=== PATIENT | female | born 1960 | race Caucasian/White ===

== ENCOUNTER 2021-06-21 12:14 | Outpatient (CLI) | payer BC, SELFPAY ==
--- NOTE | 2021-06-21 14:00 | CT_ITS ---
WS: [id number] CT ABDOMEN PELVIS TECHNIQUE: Noncontrast CT of the abdomen and pelvis with coronal and sagittal reformatted images. CLINICAL INFORMATION: K57.92 - Diverticulitis of intestine, part unspecified, w... COMPARISON: None. DLP: 1108.[address] scans at [facility] use at least one of these dose optimization techniques: automat ed exposure control; mA and/or kV adjustment per patient size (includes targeted exams where dose is matched to clinical indication); or iterative reconstruction. FINDINGS: Prior hysterectomy. Prior cholecystectomy. Sigmoid diverticulosis. No acute diverticulitis. No evidence of small or large bowel obstruction. Lung bases are well aerated. Noncontrast liver is normal. Cholecystectomy clips. Normal GE junction. Noncontrast spleen is normal. Adrenal glands are normal. No hydronephrosis in either kidney. Noncontr ast pancreas is normal. No periaortic or pelvic lymphadenopathy. No inguinal lymphadenopathy. CT/CT abdomen pelvis wo con [id number] IMPRESSION: 1. Sigmoid diverticulosis. No evidence of acute diverticulitis. 2. No evidence of small or large bowel obstruction. 3. Prior hysterectomy and cholecystectomy. 4. No hydronephrosis in either kidney.
== END 2021-06-21 12:15 | disposition home or self-care (01) ==
PROVIDERS: PCP Registered Nurse; Visit Provider Registered Nurse
DX: K57.92 Diverticulitis of intestine, part unspecified, without perforation or abscess without bleeding (principal); K57.30 Diverticulosis of large intestine without perforation or abscess without bleeding; Z90.710 Acquired absence of both cervix and uterus; Z90.49 Acquired absence of other specified parts of digestive tract; R19.8 Other specified symptoms and signs involving the digestive system and abdomen
CPT/HCPCS: 74176; 81000

== ENCOUNTER → 2021-08-03 09:04 | Outpatient (BNVA) | payer BC, SELFPAY | PROVIDERS: PCP Registered Nurse; Visit Provider Surgery | DX: Z20.822 Contact with and (suspected) exposure to COVID-19 (principal) | CPT/HCPCS: 87635 ==

== ENCOUNTER 2021-08-10 10:09 | Day surgery (SDC) | payer BC, SELFPAY ==
[2021-08-07 11:09] VITALS: BMI 29.2
[2021-08-10 11:08] VITALS: BP 126/79; PULSE 67; RESP 16; TEMP 36.2; O2SAT 93
--- NOTE | 2021-08-10 11:10 | ANES.PREANE2 ---
Pre-Anesthetic Assessment Pre-Anesthetic Assessment: Height/Weight: Height 1.63 m Weight 77.111 kg Preop Diagnosis: screening colonoscopy Proposed Procedure: Operation Date: 08/10/21 11:45 Proposed Procedures p Colonoscopy 53628 K57.30(Not Applicable) - Faizan Banerjee MD Was Beta Marilyn taken within 24 hours: N/A Was Clonidine taken within 24 hours: N/A Social: Social History: No alcohol and No tobacco Exam: Pre-Anes Outpt Exam: alert, oriented x 3, clear to auscultation bilaterally and regular rate & rhythm Airway: Submandibular: WNL Cervical ROM: WNL Dentition: Full CV/HEM: CV/HEM: HTN Anesthetic Plan: ASA status: 2 Anesthesia: MAC Risk of > 500 ml blood loss (7ml/kg in children): No PFSH Anesthesia PFSH: Medical History (Updated 07/04/21 @ 16:58 by Faizan Banerjee MD) Diverticulitis Hypertension Surgical History (Updated 07/04/21 @ 16:01 by Faizan Banerjee MD) History of cholecystectomy 2013 History of colonoscopy History of hysterectomy 2004 Family History Father Diabetes Hypertension Heart disease Mother Stroke Hypertension Grandfather Cancer Social History Smoking and tobacco status: former smoker Alcohol intake: never Adopted: No Caregiver/support person: No Lives independently: No Household members: spouse Marital status: service: No Current occupational status: retired History of recent travel: Yes Sexually active: Yes Current gender identity: Female Data Anesthesia Cardiac Studies: No Data to Display
[2021-08-10] MEDS: sodium chloride 0.9% 1,000 ML 30 ML IV (11:24)
--- NOTE | 2021-08-10 11:27 | W.PM.OPSFHP ---
Same Day Surgery H&P Indication for Procedure/HPI DATE OF PROCEDURE: August 10, 2021 CHIEF COMPLAINT/INDICATIONFOR SURGICAL PROCEDURE: diverticulosis PREOP DIAGNOSIS: screening colonoscopy PLANNED PROCEDRUE: Operation Date: 08/10/21 11:45 Proposed Procedures p Colonoscopy 18437 K57.30(Not Applicable) - Faizan Banerjee MD Medications/Allergies* Allergies/Adverse Reactions Allergy/AdvReac Type Severity Reaction Status Date / Time No Known Allergies Allergy Verified 08/10/21 11:17 Current Medications: Generic Name Dose Route Start Last Admin Trade Name Freq PRN Reason Stop Dose Admin Sodium Chloride 1,000 mls @ 30 mls/hr 08/10/21 10:30 08/10/21 11:24 Sodium Chloride 0.9% IV 08/11/21 10:29 30 mls/hr .Q24H ARIANNA Administration Pertinent History/Comorbid Conditions* Medical History (Updated 07/04/21 @ 16:58 by Faizan Banerjee MD) Diverticulitis Hypertension Surgical History (Updated 07/04/21 @ 16:01 by Faizan Banerjee MD) History of cholecystectomy 2013 History of colonoscopy History of hysterectomy 2004 Family History (Updated 05/16/21 @ 09:45 by Catarina Lowery LPN) Diabetes Father Heart disease Father Cancer Grandfather Hypertension Father Mother Stroke Mother Social History Smoking and tobacco status: former smoker Alcohol intake: never Adopted: No Caregiver/support person: No Lives independently: No Household members: spouse Marital status: service: No Current occupational status: retired History of recent travel: Yes Sexually active: Yes Current gender identity: Female Pertinent Exam Findings alert, oriented x 3 and regular rate & rhythm Recommendations Surgery/Procedure today Coding Level of Care Code 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
[2021-08-10 13:09] VITALS: BP 101/63; PULSE 78; RESP 16; TEMP 36.4; O2SAT 95
[2021-08-10 13:26] VITALS: BP 120/78; PULSE 81; RESP 18; O2SAT 99
--- NOTE | 2021-08-10 14:25 | ANE.PACU2 ---
Inpatient post-anesthesia follow up: Airway intact: Yes Vital signs: Temperature 97.5 F Pulse Rate 81 Respiratory Rate 18 Blood Pressure 120/78 Pulse Oximetry 99 Oxygen Delivery Me thod Room Air Oxygen Flow Rate Fraction of Inspir ed Oxygen Hydration adequate: Yes Nausea and vomiting: No Pain level: 1 Mental status: Baseline
== END 2021-08-10 11:30 | disposition home or self-care (01) ==
PROVIDERS: PCP Registered Nurse; Visit Provider Surgery
PROC: 0DJD8ZZ Inspection of Lower Intestinal Tract, Via Natural or Artificial Opening Endoscopic (ICD-10-PCS; CPT 45378; principal; 2021-08-10 11:45)
DX: Z12.11 Encounter for screening for malignant neoplasm of colon (principal); K57.30 Diverticulosis of large intestine without perforation or abscess without bleeding; I10 Essential (primary) hypertension; Z82.49 Family history of ischemic heart disease and other diseases of the circulatory system; Z83.3 Family history of diabetes mellitus; Z87.891 Personal history of nicotine dependence
CPT/HCPCS: 45378; 96360; 96361; J2704; J7030

== ENCOUNTER 2022-01-01 11:29 | Outpatient (CLI) | payer BC, SELFPAY ==
--- NOTE | 2022-01-01 11:39 | MM_ITS ---
WS: [id number] BILATERAL SCREENING DIGITAL MAMMOGRAM WITH CAD HISTORY: SCREENING COMPARISON: 09/19/2018, 08/02/2017 Bilateral CC and MLO views submitted. Computer aided detection analyzed. Breast composition: There are scattered areas of fibroglandular density. No suspicious masses, microc alcifications or architectural distortion. Asymmetries are stable. Small nodule in the inferior RIGHT breast seen best on the MLO projection is stable. MM/[place] [id number] IMPRESSION: BI-RADS: 2-Benign FOLLOW UP: 1 Year Follow-up
== END 2022-01-01 11:30 | disposition home or self-care (01) ==
PROVIDERS: PCP Family Medicine; Visit Provider Family Medicine
DX: Z12.31 Encounter for screening mammogram for malignant neoplasm of breast (principal)
CPT/HCPCS: 77067

== ENCOUNTER → 2022-09-10 12:18 | Outpatient (BNVA) | payer BC, SELFPAY | PROVIDERS: PCP Family Medicine; Visit Provider Family Medicine | DX: Z00.00 Encounter for general adult medical examination without abnormal findings (principal); Z51.81 Encounter for therapeutic drug level monitoring; Z13.220 Encounter for screening for lipoid disorders; I10 Essential (primary) hypertension | CPT/HCPCS: 80053; 80061; 85025 ==

== ENCOUNTER 2023-01-31 08:38 | Outpatient (CLI) | payer BC, SELFPAY ==
--- NOTE | 2023-01-31 08:48 | MM_ITS ---
WS: [id number] BILATERAL SCREENING DIGITAL TOMOSYNTHESIS MAMMOGRAM WITH CAD HISTORY: SCREENING COMPARISON: 01/01/2022 and 09/19/2018 Bilateral CC and MLO views with tomosynthesis and synthetic mammography submitted. Computer aided det ection analyzed. Breast composition: There are scattered areas of fibroglandular density. No suspicious masses, microc alcifications or architectural distortion. MM/[place] [id number] IMPRESSION: BI-RADS: 1-Negative FOLLOW UP: 1 Year Follow-up
== END 2023-01-31 08:39 | disposition home or self-care (01) ==
PROVIDERS: PCP Family Medicine; Visit Provider Family Medicine
DX: Z12.31 Encounter for screening mammogram for malignant neoplasm of breast (principal)
CPT/HCPCS: 77063; 77067

== ENCOUNTER → 2023-09-05 09:22 | Outpatient (BNVA) | payer BC, SELFPAY | PROVIDERS: PCP Family Medicine; Visit Provider Family Medicine | DX: Z51.81 Encounter for therapeutic drug level monitoring (principal); Z13.220 Encounter for screening for lipoid disorders; E55.9 Vitamin D deficiency, unspecified; I10 Essential (primary) hypertension; Z00.00 Encounter for general adult medical examination without abnormal findings; R39.15 Urgency of urination | CPT/HCPCS: 80053; 80061; 82306; 85025 ==

== ENCOUNTER 2023-11-26 12:21 | Outpatient (CLI) | payer BC, SELFPAY ==
--- NOTE | 2023-11-26 12:29 | XRR_ITS ---
PROCEDURE INFORMATION: Exam: XR Chest Exam date and time: 11/26/2023 12:41 PM Age: 63 years old Clinical indication: Cough; Additional info: Persistent cough with mild ronchi lll TECHNIQUE: Imaging protocol: Radiologic exam of the chest. Views: 2 views. COMPARISON: CT abdomen pelvis wo con [id number] 06/21/2021 12:55 PM FINDINGS: Lungs: No consolidation. Pleural spaces: No sizable pleural effusion or pneumothorax. Heart/Mediastinum: No cardiomegaly. Bones/joints: Unremarkable. XR/XR chest 2V* [id number] IMPRESSION: No acute intrathoracic findings.
== END 2023-11-26 12:22 | disposition home or self-care (01) ==
LOC: RAD 12:23
PROVIDERS: PCP Family Medicine; Visit Provider Clinical Nurse Specialist Adult Health
DX: J20.9 Acute bronchitis, unspecified (principal)
CPT/HCPCS: 71046

== ENCOUNTER → 2023-12-04 09:54 | Outpatient (BNVA) | payer BC, SELFPAY | PROVIDERS: PCP Family Medicine; Visit Provider Family Medicine | DX: E55.9 Vitamin D deficiency, unspecified (principal); J32.9 Chronic sinusitis, unspecified | CPT/HCPCS: 82306 ==

== ENCOUNTER 2024-02-19 11:21 | Outpatient (CLI) | payer BC, SELFPAY ==
--- NOTE | 2024-02-19 11:26 | MM_ITS ---
WS: [id number] BILATERAL 3D TOMOSYNTHESIS DIGITAL SCREENING MAMMOGRAPHY WITH CAD CLINICAL INFORMATION: SCREENING HISTORY: Screening mammogram. No current complaints. COMPARISON: 2022 TECHNIQUE: Bilateral CC and MLO views. FINDINGS: Scattered fibroglandular densities bilaterally. No suspicious focal mass, asymmetry, calcifications, or architectural distortion. No evidence of malignancy. A few tiny incidental punctate calcifications . IMPRESSION: MM/[place] [id number] BI-RADS: 2-Benign FOLLOW UP: 1 Year Follow-up Recommend return to annual screening mammography.
== END 2024-02-19 11:22 | disposition home or self-care (01) ==
LOC: RAD 11:22
PROVIDERS: PCP Family Medicine; Visit Provider Family Medicine
DX: Z12.31 Encounter for screening mammogram for malignant neoplasm of breast (principal)
CPT/HCPCS: 77063; 77067

== ENCOUNTER → 2024-03-31 10:50 | Outpatient (BNVA) | payer BC, SELFPAY | PROVIDERS: PCP Family Medicine; Visit Provider Family Medicine | DX: E55.9 Vitamin D deficiency, unspecified (principal) | CPT/HCPCS: 82306 ==

== ENCOUNTER → 2024-08-10 15:44 | Outpatient (BNVA) | payer BC, SELFPAY | PROVIDERS: PCP Family Medicine; Visit Provider Family Medicine | DX: Z00.00 Encounter for general adult medical examination without abnormal findings (principal); Z13.220 Encounter for screening for lipoid disorders; Z51.81 Encounter for therapeutic drug level monitoring; E55.9 Vitamin D deficiency, unspecified; R73.09 Other abnormal glucose | CPT/HCPCS: 80053; 80061; 82306; 83036; 85025 ==

== ENCOUNTER 2025-03-01 13:06 | Outpatient (CLI) | payer MEDICARE, OTHER, SELFPAY ==
--- NOTE | 2025-03-01 13:09 | MM_ITS ---
WS: [id number] BILATERAL 3D TOMOSYNTHESIS DIGITAL SCREENING MAMMOGRAPHY WITH CAD CLINICAL INFORMATION: SCREENING HISTORY: Screening mammogram. No current complaints. COMPARISON: 2023 TECHNIQUE: Bilateral CC and MLO views. FINDINGS: Scattered fibroglandular densities bilaterally. No suspicious focal mass, asymmetry, calcifications, or architectural distortion. No evidence of malignancy. A few tiny incidental punctate calcifications. MM/MM scr tomosynthesis [id number] IMPRESSION: DENSITY: There are scattered areas of fibroglandular density. BI-RADS: 2 - Benign. FOLLOW UP: 1 Year Follow-up Recommend return to annual screening mammography.
== END 2025-03-01 13:07 | disposition home or self-care (01) ==
PROVIDERS: PCP Family Medicine; Visit Provider Family Medicine
DX: Z12.31 Encounter for screening mammogram for malignant neoplasm of breast (principal); R92.323 Mammographic fibroglandular density, bilateral breasts
CPT/HCPCS: 77063; 77067

== ENCOUNTER → 2025-11-01 08:46 | Outpatient (BNVA) | payer MEDICARE, OTHER, SELFPAY | PROVIDERS: PCP Family Medicine; Visit Provider Family Medicine | DX: E55.9 Vitamin D deficiency, unspecified (principal); Z00.00 Encounter for general adult medical examination without abnormal findings; Z51.81 Encounter for therapeutic drug level monitoring; Z13.6 Encounter for screening for cardiovascular disorders | CPT/HCPCS: 80053; 80061; 82306; 85025 ==